=== PATIENT | male | born 1945 | race Two or more races ===

== ENCOUNTER 2017-11-26 10:38 | Outpatient (CLI) | payer OTHER ==
[~2017-11-26 10:38] MED LIST: DICLOFENAC POTA50 MG PO; DICLOFENAC SODI75 MG PO; SULINDAC150 MG PO; TIZANIDINE HCL2 MG PO; TIZANIDINE HCL4 MG PO
== END 2017-11-26 10:42 | disposition home or self-care (01) ==
LOC: RAD 10:38
DX: M54.2 Cervicalgia (principal); M54.5 Low back pain; M17.12 Unilateral primary osteoarthritis, left knee

== ENCOUNTER 2017-11-26 10:47 | Outpatient (CLI) | payer OTHER | END 2017-11-26 10:50 | disposition home or self-care (01) | LOC: MRI 10:47 | DX: M25.512 Pain in left shoulder (principal) | CPT/HCPCS: 73223 ==

== ENCOUNTER 2017-12-04 07:57 | Outpatient (CLI) | payer OTHER | END 2017-12-04 08:06 | disposition home or self-care (01) | LOC: LAB 07:57 | DX: N41.8 Other inflammatory diseases of prostate (principal); E11.65 Type 2 diabetes mellitus with hyperglycemia; I10 Essential (primary) hypertension ==

== ENCOUNTER 2017-12-16 09:00 | Outpatient (CLI) | payer OTHER ==
[2017-12-17] MEDS ORDERED: TIZANIDINE HCL4 MG PO (10:41)
== END 2017-12-16 15:59 | disposition home or self-care (01) ==
LOC: LAB 09:00
DX: E55.9 Vitamin D deficiency, unspecified (principal); N40.1 Benign prostatic hyperplasia with lower urinary tract symptoms

== ENCOUNTER 2017-12-19 13:39 | Outpatient (CLI) | payer OTHER | END 2017-12-19 14:07 | disposition home or self-care (01) | LOC: NUCLEAR 13:39 | DX: M81.0 Age-related osteoporosis without current pathological fracture (principal) ==

== ENCOUNTER 2018-03-20 09:55 | Outpatient (CLI) | payer OTHER ==
[2018-04-01] MEDS ORDERED: TIZANIDINE HCL4 MG PO (11:43)
[2018-04-01] MEDS ORDERED: DICLOFENAC SODI75 MG PO (11:43)
[2018-04-22] MEDS ORDERED: DICLOFENAC SODI75 MG PO (12:08)
== END 2018-03-20 10:10 | disposition home or self-care (01) ==
LOC: RAD 09:55
DX: J32.8 Other chronic sinusitis (principal)

== ENCOUNTER 2018-04-07 10:52 | Outpatient (CLI) | payer OTHER ==
[2018-04-22] MEDS ORDERED: DICLOFENAC SODI75 MG PO (12:08)
== END 2018-04-07 10:58 | disposition home or self-care (01) ==
LOC: RAD 10:52
DX: M75.41 Impingement syndrome of right shoulder (principal)

== ENCOUNTER 2018-06-17 08:14 | Outpatient (CLI) | payer OTHER | END 2018-06-17 08:16 | disposition home or self-care (01) | LOC: LAB 08:14 | DX: R10.30 Lower abdominal pain, unspecified (principal) ==

== ENCOUNTER 2018-06-22 10:25 | Outpatient (CLI) | payer OTHER | END 2018-06-22 15:16 | disposition home or self-care (01) | LOC: TOM 10:25 | DX: R10.84 Generalized abdominal pain (principal) ==

== ENCOUNTER → 2018-08-27 09:15 | Outpatient (CLI) | payer OTHER | END | disposition home or self-care (01) | LOC: LAB 09:15 | DX: E55.9 Vitamin D deficiency, unspecified (principal); I10 Essential (primary) hypertension; E03.8 Other specified hypothyroidism; N41.8 Other inflammatory diseases of prostate ==

== ENCOUNTER 2018-09-17 11:55 | Outpatient (CLI) | payer OTHER | END 2018-09-17 12:28 | disposition home or self-care (01) | LOC: LAB 11:55 | DX: R10.84 Generalized abdominal pain (principal); K59.01 Slow transit constipation; Z12.11 Encounter for screening for malignant neoplasm of colon ==

== ENCOUNTER 2019-04-17 08:11 | Outpatient (CLI) | payer OTHER ==
[2019-04-21] MEDS ORDERED: INDOMETHACIN50 MG PO (11:16)
== END 2019-04-17 13:39 | disposition home or self-care (01) ==
LOC: LAB 08:11
DX: I10 Essential (primary) hypertension (principal); E79.0 Hyperuricemia without signs of inflammatory arthritis and tophaceous disease; Z13.220 Encounter for screening for lipoid disorders; M85.80 Other specified disorders of bone density and structure, unspecified site

== ENCOUNTER 2019-04-26 10:16 | Outpatient (CLI) | payer OTHER ==
[~2019-04-26 10:16] MED LIST changes: +INDOMETHACIN50 MG PO
== END 2019-04-26 10:21 | disposition home or self-care (01) ==
LOC: RAD 10:16
DX: M79.672 Pain in left foot (principal); M10.9 Gout, unspecified

== ENCOUNTER → 2019-06-07 08:03 | Outpatient (CLI) | payer OTHER | END | disposition home or self-care (01) | LOC: LAB 08:03 | DX: I10 Essential (primary) hypertension (principal); E78.00 Pure hypercholesterolemia, unspecified ==

== ENCOUNTER 2019-07-20 08:33 | Outpatient (CLI) | payer OTHER | END 2019-07-20 15:00 | disposition home or self-care (01) | LOC: LAB 08:33 | DX: Z12.5 Encounter for screening for malignant neoplasm of prostate (principal); N39.0 Urinary tract infection, site not specified ==

== ENCOUNTER → 2019-08-07 09:52 | Outpatient (CLI) | payer OTHER | END | disposition home or self-care (01) | LOC: LAB 09:52 | DX: N18.9 Chronic kidney disease, unspecified (principal); I10 Essential (primary) hypertension; Z13.220 Encounter for screening for lipoid disorders; N41.8 Other inflammatory diseases of prostate ==

== ENCOUNTER 2019-08-11 09:57 | Outpatient (CLI) | payer OTHER | END 2019-08-11 09:58 | disposition home or self-care (01) | LOC: RAD 09:57 | DX: I10 Essential (primary) hypertension (principal) ==

== ENCOUNTER 2019-08-24 08:34 | Outpatient (CLI) | payer OTHER | END 2019-08-24 08:36 | disposition home or self-care (01) | LOC: TOM 08:34 | DX: R10.84 Generalized abdominal pain (principal) ==

== ENCOUNTER 2019-08-30 10:15 | Outpatient (CLI) | payer OTHER | END 2019-08-30 11:00 | disposition home or self-care (01) | LOC: NUCLEAR 10:15 | DX: R42 Dizziness and giddiness (principal); R51 Headache; I10 Essential (primary) hypertension; R55 Syncope and collapse ==

== ENCOUNTER 2019-09-10 12:48 | Outpatient (CLI) | payer OTHER | END 2019-09-10 12:50 | disposition home or self-care (01) | LOC: RAD 12:48 | DX: R07.89 Other chest pain (principal) ==

== ENCOUNTER → 2019-09-10 13:45 | Outpatient (CLI) | payer OTHER | END | disposition home or self-care (01) | LOC: LAB 13:45 | DX: M79.18 Myalgia, other site (principal) ==

== ENCOUNTER 2020-07-07 07:45 | Outpatient (CLI) | payer OTHER ==
[~2020-07-07 07:45] MED LIST changes: +RANITIDINE HCL300 MG PO
== END 2020-07-07 07:53 | disposition home or self-care (01) ==
LOC: LAB 07:45
PROVIDERS: ATTEND Internal Medicine
DX: I10 Essential (primary) hypertension (principal); E11.9 Type 2 diabetes mellitus without complications; Z13.29 Encounter for screening for other suspected endocrine disorder; Z13.0 Encounter for screening for diseases of the blood and blood-forming organs and certain disorders involving the immune mechanism; Z13.220 Encounter for screening for lipoid disorders

== ENCOUNTER 2020-08-01 08:56 | Outpatient (CLI) | payer OTHER | END 2020-08-01 15:00 | disposition home or self-care (01) | LOC: LAB 08:56 | PROVIDERS: ATTEND Student in an Organized Health Care Education/Training Program | DX: N40.0 Benign prostatic hyperplasia without lower urinary tract symptoms (principal) ==

== ENCOUNTER 2020-09-29 09:38 | Outpatient (CLI) | payer OTHER | END 2020-09-29 09:43 | disposition home or self-care (01) | LOC: LAB 09:38 | DX: D68.8 Other specified coagulation defects (principal) ==

== ENCOUNTER 2020-12-26 08:32 | Outpatient (CLI) | payer OTHER | END 2020-12-26 08:46 | disposition home or self-care (01) | LOC: RAD 08:32 | PROVIDERS: ATTEND Urology | DX: M51.36 Other intervertebral disc degeneration, lumbar region (principal); M54.5 Low back pain ==

== ENCOUNTER 2020-12-27 13:17 | Outpatient (CLI) | payer OTHER | END 2020-12-27 16:48 | disposition home or self-care (01) | LOC: SONOGRAMA 13:17 | PROVIDERS: ATTEND Urology | DX: N28.89 Other specified disorders of kidney and ureter (principal); M54.5 Low back pain ==

== ENCOUNTER 2021-01-26 10:03 | Outpatient (CLI) | payer OTHER | END 2021-01-26 10:06 | disposition home or self-care (01) | LOC: LAB 10:03 | PROVIDERS: ATTEND Physical Medicine & Rehabilitation | DX: Z20.828 Contact with and (suspected) exposure to other viral communicable diseases (principal) ==

== ENCOUNTER → 2021-06-05 09:24 | Outpatient (CLI) | payer OTHER | END | disposition home or self-care (01) | LOC: LAB 09:24 | PROVIDERS: ATTEND Internal Medicine Cardiovascular Disease | DX: I10 Essential (primary) hypertension (principal); E11.9 Type 2 diabetes mellitus without complications; E03.8 Other specified hypothyroidism; E78.2 Mixed hyperlipidemia; E55.9 Vitamin D deficiency, unspecified; Z12.11 Encounter for screening for malignant neoplasm of colon ==

== ENCOUNTER → 2021-06-06 08:55 | Outpatient (CLI) | payer OTHER | END | disposition home or self-care (01) | LOC: LAB 08:55 | PROVIDERS: ATTEND Internal Medicine Cardiovascular Disease | DX: I10 Essential (primary) hypertension (principal); E11.9 Type 2 diabetes mellitus without complications; E03.8 Other specified hypothyroidism; E78.2 Mixed hyperlipidemia; E55.9 Vitamin D deficiency, unspecified; Z12.11 Encounter for screening for malignant neoplasm of colon ==

== ENCOUNTER 2021-06-29 10:59 | Outpatient (CLI) | payer OTHER | END 2021-06-29 11:00 | disposition home or self-care (01) | LOC: LAB 10:59 | PROVIDERS: ATTEND Internal Medicine Cardiovascular Disease | DX: Z00.00 Encounter for general adult medical examination without abnormal findings (principal); I10 Essential (primary) hypertension ==

== ENCOUNTER 2021-10-10 06:38 | Outpatient (CLI) | payer OTHER | END 2021-10-10 06:59 | disposition home or self-care (01) | LOC: LAB 06:38 | PROVIDERS: ATTEND Physical Medicine & Rehabilitation | DX: M81.8 Other osteoporosis without current pathological fracture (principal); Z13.820 Encounter for screening for osteoporosis ==

== ENCOUNTER 2021-10-11 08:09 | Outpatient (CLI) | payer OTHER | END 2021-10-11 08:19 | disposition home or self-care (01) | LOC: RAD 08:09 | PROVIDERS: ATTEND Physical Medicine & Rehabilitation | DX: M17.11 Unilateral primary osteoarthritis, right knee (principal) ==

== ENCOUNTER 2021-10-15 10:43 | Outpatient (CLI) | payer OTHER | END 2021-10-15 10:44 | disposition home or self-care (01) | LOC: NUCLEAR 10:43 | PROVIDERS: ATTEND Physical Medicine & Rehabilitation | DX: I87.2 Venous insufficiency (chronic) (peripheral) (principal); Z13.6 Encounter for screening for cardiovascular disorders ==

== ENCOUNTER 2021-11-29 09:04 | Outpatient (CLI) | payer OTHER | END 2021-11-29 09:10 | disposition home or self-care (01) | LOC: LAB 09:04 | PROVIDERS: ATTEND Internal Medicine Cardiovascular Disease | DX: I10 Essential (primary) hypertension (principal); E11.9 Type 2 diabetes mellitus without complications; E03.8 Other specified hypothyroidism; E78.2 Mixed hyperlipidemia; E55.9 Vitamin D deficiency, unspecified ==

== ENCOUNTER 2021-11-30 10:33 | Outpatient (CLI) | payer OTHER | END 2021-11-30 10:34 | disposition home or self-care (01) | LOC: LAB 10:33 | PROVIDERS: ATTEND Internal Medicine Cardiovascular Disease | DX: I10 Essential (primary) hypertension (principal); E11.9 Type 2 diabetes mellitus without complications; E03.8 Other specified hypothyroidism; E78.2 Mixed hyperlipidemia; M10.9 Gout, unspecified; E55.9 Vitamin D deficiency, unspecified ==

== ENCOUNTER 2022-03-26 08:04 | Outpatient (CLI) | payer OTHER | END 2022-03-26 08:09 | disposition home or self-care (01) | LOC: LAB 08:04 | PROVIDERS: ATTEND Internal Medicine Cardiovascular Disease | DX: E03.9 Hypothyroidism, unspecified (principal); E11.9 Type 2 diabetes mellitus without complications; I10 Essential (primary) hypertension; E78.2 Mixed hyperlipidemia ==

== ENCOUNTER 2022-04-11 11:53 | Outpatient (CLI) | payer OTHER | END 2022-04-11 11:55 | disposition home or self-care (01) | LOC: LAB 11:53 | PROVIDERS: ATTEND Internal Medicine Cardiovascular Disease | DX: N40.0 Benign prostatic hyperplasia without lower urinary tract symptoms (principal) ==

== ENCOUNTER 2022-04-19 07:50 | Outpatient (CLI) | payer OTHER | END 2022-04-19 07:51 | disposition home or self-care (01) | LOC: NUCLEAR 07:50 | PROVIDERS: ATTEND Internal Medicine Cardiovascular Disease | DX: I72.9 Aneurysm of unspecified site (principal) ==

== ENCOUNTER → 2022-11-29 08:34 | Outpatient (CLI) | payer OTHER ==
[~2022-11-29 08:34] MED LIST changes: +GABAPENTIN100 MG PO; +ZANAFLEX2 MG PO
== END | disposition home or self-care (01) ==
LOC: LAB 08:34
PROVIDERS: ATTEND Internal Medicine Cardiovascular Disease
DX: I10 Essential (primary) hypertension (principal); M10.9 Gout, unspecified; E11.9 Type 2 diabetes mellitus without complications; E03.9 Hypothyroidism, unspecified; E78.2 Mixed hyperlipidemia; N40.0 Benign prostatic hyperplasia without lower urinary tract symptoms; E55.9 Vitamin D deficiency, unspecified

== ENCOUNTER → 2022-12-02 10:29 | Outpatient (CLI) | payer OTHER | END | disposition home or self-care (01) | LOC: LAB 10:29 | PROVIDERS: ATTEND Internal Medicine Cardiovascular Disease | DX: M10.9 Gout, unspecified (principal); I10 Essential (primary) hypertension; E11.9 Type 2 diabetes mellitus without complications; E03.9 Hypothyroidism, unspecified; E78.2 Mixed hyperlipidemia; N40.0 Benign prostatic hyperplasia without lower urinary tract symptoms; E55.9 Vitamin D deficiency, unspecified; Z12.11 Encounter for screening for malignant neoplasm of colon ==

== ENCOUNTER → 2022-12-11 | Outpatient (CLI) | payer OTHER | END | disposition home or self-care (01) | LOC: NUCLEAR 08:00 | PROVIDERS: ATTEND Physical Medicine & Rehabilitation | DX: I87.2 Venous insufficiency (chronic) (peripheral) (principal) ==

== ENCOUNTER 2022-12-28 08:25 | Outpatient (CLI) | payer OTHER | END 2022-12-28 08:35 | disposition home or self-care (01) | LOC: RAD 08:25 | PROVIDERS: ATTEND Physical Medicine & Rehabilitation | DX: M17.0 Bilateral primary osteoarthritis of knee (principal); M25.562 Pain in left knee ==

== ENCOUNTER → 2023-01-30 | Outpatient (CLI) | payer OTHER | END | disposition home or self-care (01) | LOC: LAB 09:03 | PROVIDERS: ATTEND Internal Medicine Cardiovascular Disease | DX: E03.9 Hypothyroidism, unspecified (principal); I10 Essential (primary) hypertension; E11.9 Type 2 diabetes mellitus without complications; E78.2 Mixed hyperlipidemia ==

== ENCOUNTER 2023-07-10 08:07 | Outpatient (CLI) | payer OTHER | END 2023-07-10 14:29 | disposition home or self-care (01) | LOC: LAB 08:07 | PROVIDERS: ATTEND Internal Medicine Cardiovascular Disease | DX: I10 Essential (primary) hypertension (principal); E11.9 Type 2 diabetes mellitus without complications; E03.9 Hypothyroidism, unspecified; E78.2 Mixed hyperlipidemia; Z12.11 Encounter for screening for malignant neoplasm of colon; E55.9 Vitamin D deficiency, unspecified; N40.0 Benign prostatic hyperplasia without lower urinary tract symptoms ==

== ENCOUNTER → 2023-12-03 11:23 | Outpatient (CLI) | payer OTHER ==
[2023-12-03 12:12] LABS: HEMATOCRIT 38.3 % (39.0-48.0); HEMOGLOBIN 12.9 g/dL (13-16.00); MEAN CELL VOLUME 93.5 fL (80.0-100.00); MEAN CORPUSCULAR HEMOGLOBIN 31.6 pg (27.00-32.0); MEAN CORPUSCULAR HGB CONC 33.8 g/dl (32.0-36.0); PLATELET COUNT 198 K/uL (150-450); RED CELL DISTRIBUTION WIDTH 13.9 % (11.5-14.5)
[2023-12-03 12:24] LABS: URINE APPEARANCE Clear; URINE BILIRRUBIN Negative (NEGATIVE); URINE BLOOD Negative; URINE COLOR Yellow; URINE GLUCOSE Negative (NEGATIVE); URINE LEUKOCYTE Negative; URINE NITRATE Negative; URINE PROTEIN Negative (NEGATIVE); URINE UROBILINOGEN 0.2 E.U./dl
[2023-12-03 12:33] LABS: URINE BACTERIA 0 uL (0.0-1933); URINE EPITHELIAL CELLS 0.9 uL (0.0-38.8); URINE RBC 0.8 uL (0.0-20.8); URINE WBC 0.3 uL (0.0-23.2)
[2023-12-03 12:51] LABS: ALBUMIN 3.7 gm/dL (3.4-5.0); BILIRUBIN TOTAL 0.97 mg/dL (0.3-1.2); CHOL HDL RATIO 3.1 (0-5.0); CREATININE SERUM 1.18 mg/dL (0.70-1.30); GFR 59.39; GLOBULINA 3.2 G/DL (2.4-3.5); POTASSIUM 4.11 mEq/L (3.5-5.1); PROSTATIC SPECIFIC ANTIGEN 0.607 NG/ML (0.010-4.00); T4 TOTAL 8.04 UG/DL (4.5-12.1); TOTAL PROTEIN 6.9 gm/dL (6.4-8.2); TSH 0.786 uIU/mL (0.358-3.74)
[2023-12-03 12:55] LABS: URIC ACID 8.6 mg/dL (3.5-8.5)
[2023-12-03 13:09] LABS: ob NEGATIVE (NEGATIVE)
[2023-12-03 13:45] LABS: T3 TOTAL 0.882 ng/ml (0.846-2.02); VITAMIN D3 25 HYDROXY 59.41 ng/ml (30-120)
== END | disposition home or self-care (01) ==
LOC: LAB 11:23
PROVIDERS: ATTEND Internal Medicine Cardiovascular Disease
DX: I10 Essential (primary) hypertension (principal); E11.9 Type 2 diabetes mellitus without complications; E03.9 Hypothyroidism, unspecified; E78.2 Mixed hyperlipidemia; E55.9 Vitamin D deficiency, unspecified; N40.0 Benign prostatic hyperplasia without lower urinary tract symptoms; M10.9 Gout, unspecified

== ENCOUNTER 2024-05-14 09:58 | Outpatient (CLI) | payer OTHER ==
[~2024-05-14 09:58] MED LIST changes: +TRAMADOL HCL50 MG PO
== END 2024-05-14 10:03 | disposition home or self-care (01) ==
LOC: RAD 09:58
PROVIDERS: ATTEND Physical Medicine & Rehabilitation
DX: M25.562 Pain in left knee (principal)

== ENCOUNTER 2024-05-27 08:18 | Outpatient (CLI) | payer OTHER ==
[2024-05-27 09:12] LABS: HEMATOCRIT 39.1 % (39.0-48.0); MEAN CELL VOLUME 93.2 fL (80.0-100.00); MEAN CORPUSCULAR HEMOGLOBIN 31.1 pg (27.00-32.0); MEAN CORPUSCULAR HGB CONC 33.4 g/dl (32.0-36.0); PLATELET COUNT 196 K/uL (150-450); RED BLOOD COUNT 4.19 M/uL (4.00-6.00); RED CELL DISTRIBUTION WIDTH 13.5 % (11.5-14.5)
[2024-05-27 09:15] LABS: PH,URINE 5.5 (5.0-8.0); URINE APPEARANCE Clear; URINE BILIRRUBIN Negative (NEGATIVE); URINE BLOOD Negative; URINE COLOR Yellow; URINE GLUCOSE Negative (NEGATIVE); URINE LEUKOCYTE Negative; URINE NITRATE Negative; URINE PROTEIN Negative (NEGATIVE); URINE UROBILINOGEN 0.2 E.U./dl
[2024-05-27 09:21] LABS: URINE BACTERIA 3.7 uL (0.0-1933); URINE EPITHELIAL CELLS 1.2 uL (0.0-38.8); URINE RBC 1.6 uL (0.0-20.8); URINE WBC 0 uL (0.0-23.2)
[2024-05-27 09:44] LABS: ALBUMIN 3.7 gm/dL (3.4-5.0); BILIRUBIN TOTAL 0.95 mg/dL (0.3-1.2); CALCIUM 8.6 mg/dL (8.5-10.1); CHOL HDL RATIO 3.1 (0-5.0); CREATININE SERUM 1.17 mg/dL (0.70-1.30); GFR 59.83; GLOBULINA 3.3 G/DL (2.4-3.5); POTASSIUM 4.27 mEq/L (3.5-5.1); T4 TOTAL 6.86 UG/DL (4.5-12.1); TSH 0.941 uIU/mL (0.358-3.74)
[2024-05-27 09:45] LABS: URIC ACID 8.1 mg/dL (3.5-8.5)
== END 2024-05-27 08:19 | disposition home or self-care (01) ==
LOC: LAB 08:18
PROVIDERS: ATTEND Internal Medicine Cardiovascular Disease
DX: E03.9 Hypothyroidism, unspecified (principal); E11.9 Type 2 diabetes mellitus without complications; I10 Essential (primary) hypertension; E78.2 Mixed hyperlipidemia; M10.9 Gout, unspecified

== ENCOUNTER 2024-11-25 08:15 | Outpatient (CLI) | payer OTHER | END 2024-11-25 08:17 | disposition home or self-care (01) | LOC: SONOGRAMA 08:15 | PROVIDERS: ATTEND Physical Medicine & Rehabilitation | DX: R10.9 Unspecified abdominal pain (principal); R10.31 Right lower quadrant pain ==

== ENCOUNTER 2024-11-25 10:20 | Outpatient (CLI) | payer OTHER ==
[2024-11-25 11:34] LABS: URINE APPEARANCE Clear; URINE BILIRRUBIN Negative (NEGATIVE); URINE BLOOD Negative; URINE COLOR Yellow; URINE GLUCOSE Negative (NEGATIVE); URINE KETONE Negative (NEGATIVE); URINE LEUKOCYTE Negative; URINE NITRATE Negative; URINE PROTEIN Negative (NEGATIVE); URINE UROBILINOGEN 0.2 E.U./dl
[2024-11-25 11:35] LABS: HEMATOCRIT 40.3 % (39.0-48.0); HEMOGLOBIN 13.8 g/dL (13-16.00); MEAN CELL VOLUME 92.1 fL (80.0-100.00); MEAN CORPUSCULAR HEMOGLOBIN 31.4 pg (27.00-32.0); MEAN CORPUSCULAR HGB CONC 34.1 g/dl (32.0-36.0); PLATELET COUNT 229 K/uL (150-450); RED BLOOD COUNT 4.38 M/uL (4.00-6.00); RED CELL DISTRIBUTION WIDTH 13.8 % (11.5-14.5)
[2024-11-25 11:56] LABS: URINE BACTERIA 3.6 uL (0.0-1933); URINE EPITHELIAL CELLS 0.3 uL (0.0-38.8); URINE WBC 0 uL (0.0-23.2)
[2024-11-25 12:42] LABS: ALBUMIN 3.9 gm/dL (3.4-5.0); BILIRUBIN TOTAL 1.03 mg/dL (0.3-1.2); CALCIUM 9.1 mg/dL (8.5-10.1); CHOL HDL RATIO 3.6 (0-5.0); CREATININE SERUM 1.18 mg/dL (0.70-1.30); GFR 59.25; GLOBULINA 3.5 G/DL (2.4-3.5); POTASSIUM 4.61 mEq/L (3.5-5.1); TOTAL PROTEIN 7.4 gm/dL (6.4-8.2)
[2024-11-25 12:46] LABS: URIC ACID 7.5 mg/dL (3.5-8.5)
== END 2024-11-25 10:21 | disposition home or self-care (01) ==
LOC: LAB 10:20
PROVIDERS: ATTEND Physical Medicine & Rehabilitation
DX: M10.9 Gout, unspecified (principal); I10 Essential (primary) hypertension; Z13.220 Encounter for screening for lipoid disorders

== ENCOUNTER 2024-12-24 07:50 | Outpatient (CLI) | payer OTHER ==
[2024-12-24 09:01] LABS: URINE APPEARANCE Clear; URINE BILIRRUBIN Negative (NEGATIVE); URINE BLOOD Negative; URINE COLOR Yellow; URINE GLUCOSE Negative (NEGATIVE); URINE KETONE Negative (NEGATIVE); URINE LEUKOCYTE Negative; URINE NITRATE Negative; URINE PROTEIN Negative (NEGATIVE); URINE UROBILINOGEN 0.2 E.U./dl
[2024-12-24 09:02] LABS: URINE BACTERIA 6.1 uL (0.0-1933); URINE WBC 2.2 uL (0.0-23.2)
[2024-12-24 09:10] LABS: URINE CAST 0.44 uL (0.0-1.40); URINE EPITHELIAL CELLS 0.7 uL (0.0-38.8); URINE RBC 1.7 uL (0.0-20.8)
[2024-12-24 09:55] LABS: T4 TOTAL 6.51 UG/DL (4.5-12.1); TSH 1.59 uIU/mL (0.358-3.74)
[2024-12-24 10:12] LABS: T3 TOTAL 1.05 ng/ml (0.846-2.02); VITAMIN D3 25 HYDROXY 50.12 ng/ml (30-120)
[2024-12-24 13:19] LABS: ob POSITIVE (NEGATIVE)
== END 2024-12-24 07:55 | disposition home or self-care (01) ==
LOC: LAB 07:50
PROVIDERS: ATTEND Internal Medicine Cardiovascular Disease
DX: E03.9 Hypothyroidism, unspecified (principal); I10 Essential (primary) hypertension; E11.9 Type 2 diabetes mellitus without complications; E78.2 Mixed hyperlipidemia; E55.9 Vitamin D deficiency, unspecified; M81.0 Age-related osteoporosis without current pathological fracture

== ENCOUNTER 2025-04-28 07:32 | Outpatient (CLI) | payer OTHER ==
[2025-04-28 08:17] LABS: BASO % 0.1 % (0.1-1.2); HEMATOCRIT 36.3 % (40.1-51.0); HEMOGLOBIN 12.2 g/dL (13.7-17.5); LYMPH # 1.64 (1.18-3.74); LYMPH % 10.1 % (19.3-53.1); MEAN CORPUSCULAR HEMOGLOBIN 30.9 pg (25.6-32.2); MONO # 0.83 (0.24-0.82); MONO % 5.1 % (4.7-12.5); NEUT # 13.56 (1.56-6.13); NEUT % 83.8 % (34.0-71.1); PLATELET COUNT 241 K/uL (163-369); RED BLOOD COUNT 3.95 M/uL (4.63-6.08); RED CELL DISTRIBUTION WIDTH 13.2 % (11.6-14.4)
[2025-04-28 08:28] LABS: PH,URINE 5.5 (5.0-8.0); URINE APPEARANCE Clear; URINE BILIRRUBIN Negative (NEGATIVE); URINE BLOOD Negative; URINE COLOR Yellow; URINE GLUCOSE Negative (NEGATIVE); URINE KETONE Negative (NEGATIVE); URINE LEUKOCYTE Negative; URINE NITRATE Negative; URINE PROTEIN Negative (NEGATIVE); URINE UROBILINOGEN 0.2 E.U./dl
[2025-04-28 08:30] LABS: URINE EPITHELIAL CELLS 1.5 uL (0.0-38.8); URINE RBC 7.5 uL (0.0-20.8); URINE WBC 1.8 uL (0.0-23.2)
[2025-04-28 08:56] LABS: URINE BACTERIA 2.4 uL (0.0-1933); URINE CAST 0.14 uL (0.0-1.40)
[2025-04-28 09:43] LABS: ALBUMIN 3.5 gm/dL (3.4-5.0); BILIRUBIN TOTAL 0.8 mg/dL (0.3-1.2); CALCIUM 8.8 mg/dL (8.5-10.1); CHOL HDL RATIO 2.9 (0-5.0); CREATININE SERUM 1.07 mg/dL (0.70-1.30); GFR 66.16; GLOBULINA 3.4 G/DL (2.4-3.5); POTASSIUM 4.58 mEq/L (3.5-5.1); T4 TOTAL 7.32 UG/DL (4.5-12.1); TOTAL PROTEIN 6.9 gm/dL (6.4-8.2)
[2025-04-28 09:45] LABS: TSH 0.311 uIU/mL (0.358-3.74)
== END 2025-04-28 07:34 | disposition home or self-care (01) ==
LOC: LAB 07:32
PROVIDERS: ATTEND Internal Medicine Cardiovascular Disease
DX: I10 Essential (primary) hypertension (principal); E11.9 Type 2 diabetes mellitus without complications; E03.9 Hypothyroidism, unspecified; E78.2 Mixed hyperlipidemia; N39.0 Urinary tract infection, site not specified

== ENCOUNTER → 2025-06-07 09:54 | Outpatient (CLI) | payer OTHER | END | disposition home or self-care (01) | LOC: NUCLEAR 09:54 | PROVIDERS: ATTEND Internal Medicine Cardiovascular Disease | DX: I73.9 Peripheral vascular disease, unspecified (principal) ==

== ENCOUNTER → 2025-07-16 09:12 | Outpatient (CLI) | payer OTHER ==
[2025-07-16 10:46] LABS: BASO % 0.8 % (0.1-1.2); EOS # 0.16 (0.04-0.54); EOS % 2.0 % (0.7-7.0); LYMPH # 1.73 (1.18-3.74); LYMPH % 22.1 % (19.3-53.1); MEAN PLATELET VOLUME 10.60 fl (9.4-12.4); MONO # 0.65 (0.24-0.82); MONO % 8.3 % (4.7-12.5); NEUT # 5.20 (1.56-6.13); NEUT % 66.3 % (34.0-71.1); RED CELL DISTRIBUTION WIDTH 12.3 % (11.6-14.4)
[2025-07-16 10:49] LABS: URINE APPEARANCE Clear; URINE BILIRRUBIN Negative (NEGATIVE); URINE BLOOD Negative; URINE COLOR Yellow; URINE GLUCOSE Negative (NEGATIVE); URINE KETONE Negative (NEGATIVE); URINE LEUKOCYTE Negative; URINE NITRATE Negative; URINE PROTEIN Negative (NEGATIVE); URINE UROBILINOGEN 0.2 E.U./dl
[2025-07-16 10:52] LABS: URINE BACTERIA 4.7 uL (0.0-1933); URINE RBC 2.4 uL (0.0-20.8)
[2025-07-16 10:59] LABS: URINE CAST 0.00 uL (0.0-1.40); URINE EPITHELIAL CELLS 1.3 uL (0.0-38.8); URINE WBC 1.0 uL (0.0-23.2)
[2025-07-16 11:32] LABS: BUN CREA RATIO 16.0 (7.0-25.0); CHOL HDL RATIO 3.3 (0-5.0); CREATININE SERUM 1.22 mg/dL (0.70-1.30); GFR 56.87; GLUCOSE FASTING 87.0 mg/dL (65-100); HDL 62.0 mg/dl (40-60); LDL 130.0 mg/dl (0-130); OSMOLALITY SERUM 287.0 MOSM/KG (275-295); T4 TOTAL 7.24 UG/DL (4.5-12.1); TSH 1.15 uIU/mL (0.358-3.74); VLDL 11.0 (0-39)
== END | disposition home or self-care (01) ==
LOC: LAB 09:12
PROVIDERS: ATTEND Internal Medicine Cardiovascular Disease
DX: E03.9 Hypothyroidism, unspecified (principal); E78.2 Mixed hyperlipidemia; I10 Essential (primary) hypertension; R73.03 Prediabetes; M10.9 Gout, unspecified